=== PATIENT | female | born 1930 | race Caucasian/White ===

== ENCOUNTER 2018-10-18 05:32 | Observation (INO) | payer MEDICARE ==
[2018-10-02 13:20] VITALS: BMI 23.8
[2018-10-18] MEDS ORDERED: Sodium Chloride 0.9% 10 ML ONE (06:28)
[2018-10-18 06:39] LABS: #Eosinphils 0.2 thou/uL (0.0-0.7); #Lymphocytes 2.1 thou/uL (1.20-3.40); #Monocytes 0.7 thou/uL (0.11-0.59); #Neutrophils 4.6 thou/uL (1.40-6.50); %Basophils 0.5 % (0.0-1.0); %Eosinophils 2.3 % (0.0-10.0); %Lymphocytes 27.8 % (21.0-51.0); %Monocytes 9.5 % (0.0-10.0); %Neutrophils 59.9 % (42.0-75.0); Hemoglobin 14.3 g/dL (12.0-16.0); Mean Corpuscular HGB CONC 31.6 g/dL (32.0-36.0); Mean Corpuscular Hemoglobin 29.7 pg (27.0-31.0); Mean Corpuscular Volume 93.9 fL (78.0-98.0); Platelet Count 289 thou/uL (130-400); RBC Distribution Width 12.5 % (11.5-14.5); Red Blood Cell (RBC) Count 4.81 mill/uL (4.20-5.40); White Blood Cell (WBC) Count 7.7 thou/uL (4.8-10.8)
[2018-10-18 06:57] LABS: Anion Gap 10 mmol/L (10-20); BUN (Urea Nitrogen) 13 mg/dL (9.8-20.1); Calc. Creatinine Clearance 50 mL/min (70-130); Calcium 9.9 mg/dL (7.8-10.44); Carbon Dioxide 26 mmol/L (23-31); Chloride 108 mmol/L (98-107); Estimated GFR-MDRD 76; Glucose 89 mg/dL (83-110); Sodium 140 mmol/L (136-145)
[2018-10-18] MEDS ORDERED: Fentanyl 100 MCG/2 ML VIAL ONE ×4 (07:18→09:34)
[2018-10-18] MEDS ORDERED: HYDROmorphone 2 MG/ML VIAL SLOW IVP PRN (08:18)
[2018-10-18] MEDS ORDERED: Morphine Sulfate 2 MG/ML SYRINGE SLOW IVP PRN (08:18)
[2018-10-18] MEDS ORDERED: Ondansetron HCl/PF 4 MG/2 ML Vial IVP PRN (08:18)
[2018-10-18] MEDS ORDERED: Promethazine HCl 25 MG/ML VIAL SLOW IVP PRN (08:18)
[2018-10-18] MEDS ORDERED: PACU-Morphine 4MG/ML VIAL SLOW IVP PRN (08:18)
[2018-10-18] MEDS ORDERED: Promethazine HCl 25 MG/ML VIAL IM PRN ×2 (08:18→09:01)
[2018-10-18] MEDS ORDERED: Promethazine 25 MG TAB PO PRN (09:01)
[2018-10-18] MEDS ORDERED: traMADol HCl 50 MG TAB PO PRN (09:01)
[2018-10-18] MEDS ORDERED: diphenhydrAMINE 25 MG CAP PO PRN (09:01)
[2018-10-18] MEDS ORDERED: Morphine 4 MG/ML VIAL SLOW IVP PRN ×2 (09:01→12:37)
[2018-10-18] MEDS ORDERED: Mag-Al 1200 mg/1200 mg/30 ML UDCUP PO PRN (09:01)
[2018-10-18] MEDS ORDERED: Cyclobenzaprine 10 MG TAB PO PRN (09:01)
[2018-10-18] MEDS ORDERED: Promethazine HCl 12.5 MG SUPP PR PRN (09:01)
[2018-10-18] MEDS ORDERED: Ondansetron PF 4 MG/2 ML Vial IVP PRN (09:01)
[2018-10-18] MEDS ORDERED: diphenhydrAMINE 50 MG/ML VIAL IVP PRN (09:01)
[2018-10-18] MEDS ORDERED: Morphine 2 MG/ML SYRINGE SLOW IVP PRN ×2 (09:03→12:35)
[2018-10-18] MEDS ORDERED: HYDROcodone/Acetaminophen 5/325 mg Tablet PO PRN ×4 (09:12→12:38)
[2018-10-18] MEDS ORDERED: Ibuprofen 200 MG TAB PO PRN (09:27)
--- NOTE | 2018-10-18 10:21 | OP ---
DATE OF PROCEDURE: 10/18/2018 [employer]: Edgar Rodriguez PA-C PROCEDURES PERFORMED: Anterior cervical diskectomy C4-C5, interbody arthrodesis, intervertebral biomechanical device, local morselized autograft, demineralized bone matrix, anterior titanium instrumentation, C4-C5. DESCRIPTION OF PROCEDURE: The patient was brought to the operating room and intubated. She was positioned supine with the head in modest extension on a gel-filled donut. An incision was made in the right precervical area and dissected medial to the sternocleidomastoid muscle, identified the anterior cervical spinal, and the level was confirmed by x-ray. We placed distraction across C4-C5 and removed the intervertebral disk. The bony endplates were then decorticated for the purpose of arthrodesis and appropriate-sized intervertebral biomechanical PEEK device was brought into the field, filled with demineralized bone matrix, local morselized autograft, and tapped in place securely at C4-C5. Next, an anterior plate was brought into the field and secured to C4 and C5 using two 14-mm screws at each level. The wound was then extensively irrigated and MAC hemostasis was secured and the wound was closed in anatomic layers. Job ID: [id number]
[2018-10-18] MEDS ORDERED: Glycopyrrolate 0.2 MG/ML 5 ML SYRINGE ONE (13:30)
[2018-10-18] MEDS ORDERED: Dexamethasone 20 MG/5 ML VIAL ONE (13:30)
[2018-10-18] MEDS ORDERED: Rocuronium Bromide 10 MG/ML (10ML VIAL) ONE (13:30)
[2018-10-18] MEDS ORDERED: Ondansetron PF 4 MG/2 ML Vial ONE (13:30)
[2018-10-18] MEDS ORDERED: PROPOFOL 200 MG/20 ML VIAL ONE (13:30)
[2018-10-18] MEDS: traMADol HCl 50 MG TAB PO PRN ×2 (15:24→23:44)
[2018-10-18] MEDS: CEFAZOLIN 2 GM in Premix Bag 1 BAG IVPB SCH ×2 (15:27→23:45)
--- NOTE | 2018-10-18 16:12 | EKG ---
Test Reason : PREOP Blood Pressure : / mmHG Vent. Rate : 072 BPM Atrial Rate : 072 BPM P-R Int : 192 ms QRS Dur : 096 ms QT Int : 408 ms P-R-T Axes : 070 030 078 degrees QTc Int : 446 ms Normal sinus rhythm Cannot rule out Anterior infarct , age undetermined Abnormal ECG Confirmed by BALWINDER ELKINS ([id number]) on 10/18/2018 4:12:12 PM Referred By: SANCHEZ Confirmed By:BALWINDER ELKINS
[2018-10-19] MEDS ORDERED: Levothyroxine Sodium 50 MCG TAB PO SCH (06:00)
[2018-10-19] MEDS: traMADol HCl 50 MG TAB PO PRN (07:04)
[2018-10-19] MEDS ORDERED: pyridOXINE 50 MG (B6) TAB PO SCH (09:00)
[2018-10-19] MEDS ORDERED: Cyanocobalamin (Vitamin B-12) 1,000 MCG TAB PO SCH (09:00)
[2018-10-19] MEDS ORDERED: Vit A,C & E/Lutein/Minerals Tablet PO SCH (09:00)
[2018-10-19] MEDS ORDERED: Dexamethasone 4 mg/ml Vial SLOW IVP SCH (09:00)
[2018-10-19] MEDS ORDERED: Pilocarpine 5 MG TAB PO SCH (09:00)
[2018-10-19 11:35] VITALS: BP 143/86; TEMP 97.7
--- NOTE | 2018-10-19 12:45 | DIS ---
DATE OF ADMISSION: 10/18/2018 DATE OF DISCHARGE: 10/19/2018 HOSPITAL COURSE: The patient is an 88-year-old female, who was recently seen in our office for progressive neck pain and found to have significant degenerative disk disease at C4-C5. She underwent C4-C5 ACDF on 10/17/2018. Following the surgery, she was transitioned to the med/surg floor. Her pain has been well controlled with tramadol, though she has been complaining of some persistent right shoulder discomfort. She has free active range of motion in all extremities. No focal motor weakness on my exam. She has been ambulating short distances in the hallways with a walker. She is voiding appropriately and tolerating a regular diet. I have given her 8 mg of IV Decadron in the Emergency Department. She is otherwise doing quite well and we will plan to dismiss the patient to home. I have instructed her to resume her home medications except for her aspirin. She has been provided tramadol and Flexeril for pain. We will follow up with the patient in 2 weeks for recheck. Job ID: [id number]
== END 2018-10-19 12:50 | disposition home health service (06) ==
LOC: SDC 05:32 → INTOOBSV 10:32 → SJJU 10:32
PROVIDERS: ADMIT Neurological Surgery; ATTEND Neurological Surgery
PROC: 0RG10A0 Fusion of Cervical Vertebral Joint with Interbody Fusion Device, Anterior Approach, Anterior Column, Open Approach (ICD-10-PCS; principal; 2018-10-18)
PROC: 0RT30ZZ Resection of Cervical Vertebral Disc, Open Approach (ICD-10-PCS; 2018-10-18)
DX: M47.22 Other spondylosis with radiculopathy, cervical region (principal); M43.12 Spondylolisthesis, cervical region; E07.9 Disorder of thyroid, unspecified; G43.909 Migraine, unspecified, not intractable, without status migrainosus; Z79.82 Long term (current) use of aspirin; Z79.899 Other long term (current) drug therapy; Z88.5 Allergy status to narcotic agent
CPT/HCPCS: 20930; 20936; 22551; 22845; 22853; 76000; 80048; 85025; 93005; 96365; 96366; 96375; 97116; 97139; 97530; C1713; C1776; G0378; 93010; J0131; J0690; J1100; J2405; J2704; J3010; J3490

== ENCOUNTER 2018-11-01 10:50 | Outpatient (CLI) | payer MEDICARE ==
--- NOTE | 2018-11-01 11:32 | RAD ---
EXAM: 3 views of the cervical spine HISTORY: Neck fusion. Neck and shoulder pain. COMPARISON: None FINDINGS: AP, lateral, and open mouth odontoid views of the cervical spine shows the patient is statu s post anterior fusion of C4 and C5 with a plate and screws. 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 No perihardware lucency is seen. The disc spacer is in good position within the disc sp amando at C4/5. The intervertebral discs are narrowed in the lower cervical spine with small surrounding osteophytes. There is normal alignment of the vertebral bodies without subluxation. No p revertebral soft tissue swelling is seen. IMPRESSION: Postsurgical and degenerative changes of the cervical spine as above
== END 2018-11-01 10:51 | disposition home or self-care (01) ==
LOC: TBSIIMAG 10:50
PROVIDERS: ATTEND Neurological Surgery
DX: M47.22 Other spondylosis with radiculopathy, cervical region (principal); Z98.890 Other specified postprocedural states
CPT/HCPCS: 72040

== ENCOUNTER 2018-12-18 13:32 | Outpatient (CLI) | payer MEDICARE ==
--- NOTE | 2018-12-18 13:49 | RAD ---
EXAM: XR Cerv Sp Ap Lat STANDARD PROVIDED CLINICAL HISTORY: Cervical spondylosis. Follow-up postsurgical changes. COMPARISON: 11/01/2018. FINDINGS: Surgical clips are again seen overlying the anterior lateral right neck soft tissues. Postsurgical ch anges related to anterior cervical fusion at the C4-5 level are again seen with anterior plate and screws again transfixing this level. Intradiscal prosthesis is noted. There is stable mild anterolist hesis of C4 on C5. No definite hardware complication is appreciated. There is suggestion of at least partial fusion of the C3 and C4 vertebral bodies. Facet degenerative changes are seen at multiple levels. There is straightening of the normal cervical lordotic curvature. No additional level of subluxation is seen, and no fracture is identified. C1 to the cervicothoracic junction is seen on the lateral view. Prevertebral soft tissues are within nor mal limits. Vascular calcifications are seen in the thoracic aorta. There is symmetric biapical pleural and paren chymal scarring which is partially calcified. Mild chronic lung changes are seen in the visualized upper lung zones. IMPRESSION: Stable postsurgical and degenerative changes involving the cervical spine.
== END 2018-12-18 13:33 | disposition home or self-care (01) ==
LOC: TBSIIMAG 13:32
PROVIDERS: ATTEND Neurological Surgery
DX: M47.812 Spondylosis without myelopathy or radiculopathy, cervical region (principal); Z98.1 Arthrodesis status
CPT/HCPCS: 72040